=== PATIENT | female | born 1945 | race Caucasian/White ===

== ENCOUNTER 2019-01-20 19:52 | Observation (INO) ==
[2019-01-20] MEDS ORDERED: SODIUM CHLORIDE 0.9% 1,000 ML IV STA (23:11)
[2019-01-20 23:34] LABS: Basophils # 0.1 10*3/uL (0.0-0.2); Basophils % 1.5 % (0.0-0.8); Eosinophils # 0.4 10*3/uL (0.0-0.87); Eosinophils % 3.9 % (0.00-10.9); Hematocrit 37.5 VOL% (35.7-47.0); Hemoglobin 12.5 GM/DL (12.0-16.0); Immature Granulocytes % 1.1 %; Lymphocytes # 1.2 10*3/uL (1.4-4.0); Lymphocytes % 13.9 % (21.3-54.2); Mean Corpuscular HGB Conc 33.3 GM/DL (32-36); Mean Corpuscular Hemoglobin 35 PG (27-34); Mean Corpuscular Volume 104.7 FL (87-102); Mean Platelet Volume 9.9 FL (9.6-12.0); Monocytes % 11.5 % (1.7-12.7); Neutrophils # 6.1 10*3/uL (1.4-7.4); Neutrophils % 68.1 % (38.7-73.9); Platelet Count 185 T/CUMM (130-400); Red Blood Count 3.58 MC/CUMM (3.8-5.5); Red Cell Distribution Width 14.6 % (9.3-17.3); White Blood Count 8.9 T/CUMM (4-12)
[2019-01-20 23:49] LABS: INR 1.1; PT Patient Result 11.5 SECS
[2019-01-20 23:54] LABS: Apearance,Urine CLEAR (Clear); Bilirubin,Urine Negative (Negative); Blood, Urine Negative (Negative); Glucose,Urine (UA) Negative (Negative); Hyaline Casts,Urine 3 /LPF (0-3); Ketones,Urine 5 mg/dL (Negative); Nitrite,Urine Negative (Negative); Protein,Urine Negative; RBC,Urine 2 /HPF (0-4); Urine Color Yellow (Yellow); Urine Specific Gravity 1.014 (1.001-1.035); WBC,Urine 1 /HPF (0-6)
[2019-01-21 00:02] LABS: Barbiturates Screen,Urine Negative (Negative); Benzodiazepines Screen,Urine Negative (Negative); Cannabinoid Screen,Urine Negative (Negative); Opiate Screen,Urine Negative (Negative); Phencyclidine Screen,Urine Negative (Negative)
[2019-01-21 00:21] LABS: Alanine Aminotransferase 14 U/L (13-56); Alkaline Phosphatase 103 U/L (45-117); Aspartate Amino Transferase 41 U/L (0-37); Blood Urea Nitrogen 36 MG/DL (7-18); Calcium 9.6 MG/DL (8.5-10.1); Glucose 109 MG/DL (74-106); Osmolality,Calculated 276.2 MOS/KG (273-304); Potassium 5.7 MMOL/L (3.5-5.1); Sodium 134 MMOL/L (136-145); Total Protein 9.2 G/DL (6.4-8.3); Troponin I < 0.015 NG/ML (0.00-0.045)
[2019-01-21] MEDS ORDERED: BISACODYL 5 MG TABLET PO PRN (01:12)
[2019-01-21] MEDS ORDERED: diphenhydrAMINE CAP 25 MG CAPSULE PO PRN (01:12)
[2019-01-21] MEDS ORDERED: ONDANSETRON 4 MG/2 ML VIAL IV PRN (01:12)
[2019-01-21] MEDS ORDERED: guaiFENesin/DM ER 600-30 MG TABLET PO PRN (01:12)
[2019-01-21] MEDS ORDERED: ACETAMINOPHEN 325 MG TABLET PO PRN (01:12)
[2019-01-21] MEDS ORDERED: NICOTINE 21 MG/24 HR PATCH TRANSDERM PRN (01:12)
[2019-01-21] MEDS ORDERED: ZALEPLON 5 MG CAPSULE PO PRN (01:12)
[2019-01-21] MEDS: SODIUM CHLORIDE 0.9% 1,000 ML IV SCH ×3 (04:30→21:39)
[2019-01-21 05:50] LABS: Folate 13.3 NG/ML (5.4-24.0)
[2019-01-21] MEDS ORDERED: SODIUM POLYSTYRENE SULFATE 15 GM/60 ML BOTTLE PO STA (06:28)
[2019-01-21 07:37] LABS: Calcium 8.8 MG/DL (8.5-10.1); Osmolality,Calculated 287.3 MOS/KG (273-304); Potassium 4.6 MMOL/L (3.5-5.1)
[2019-01-21 07:41] LABS: Free T4 (Free Thyroxine) 1.37 NG/DL (0.76-1.46)
[2019-01-21] MEDS ORDERED: ONDANSETRON ODT 4 MG TABLET PO PRN (09:06)
[2019-01-21] MEDS: PANTOPRAZOLE 40 MG TABLET PO SCH ×2 (10:35→10:55)
[2019-01-21] MEDS: LACTULOSE 20 GM/30 ML UDCUP PO SCH ×2 (15:43→20:58)
[2019-01-21] MEDS: SPIRONOLACTONE 50 MG TABLET PO SCH (20:58)
[2019-01-21] MEDS: IRON (CARBONYL)/VIT C/B12/FA TABLET PO SCH (20:58)
[2019-01-21] MEDS: CARBIDOPA/LEVODOPA 25-100 MG TABLET PO SCH (20:58)
[2019-01-21] MEDS ORDERED: FOLIC ACID 1 MG TABLET PO SCH (21:00)
[2019-01-22] MEDS: SODIUM CHLORIDE 0.9% 1,000 ML IV SCH ×2 (05:59→13:26)
[2019-01-22] MEDS ORDERED: PANTOPRAZOLE 40 MG TABLET PO SCH (09:00)
[2019-01-22] MEDS ORDERED: azaTHIOprine 50 MG TABLET PO SCH (09:00)
[2019-01-22] MEDS ORDERED: FLUTICASONE INH SCH (09:00)
[2019-01-22] MEDS ORDERED: VILANTEROL INH SCH (09:00)
[2019-01-22] MEDS ORDERED: MONTELUKAST 10 MG TABLET PO SCH (09:00)
[2019-01-22] MEDS ORDERED: ASPIRIN EC 81 MG TABLET PO SCH (09:00)
[2019-01-22] MEDS: LACTULOSE 20 GM/30 ML UDCUP PO SCH (09:26)
[2019-01-22] MEDS: SPIRONOLACTONE 50 MG TABLET PO SCH (09:27)
[2019-01-22] MEDS: IRON (CARBONYL)/VIT C/B12/FA TABLET PO SCH (09:27)
[2019-01-22] MEDS: CARBIDOPA/LEVODOPA 25-100 MG TABLET PO SCH (09:30)
[2019-01-22 11:59] VITALS: BP 116/63
[2019-01-28] MEDS ORDERED: ERGOCALCIFEROL 50,000 UNIT CAPSULE PO SCH (09:00)
== END 2019-01-22 14:34 ==
LOC: N.EDINP 19:52 → N.ED 19:52 → N.2E 01-21 02:29
PROVIDERS: ADMIT Internal Medicine; ATTEND Internal Medicine

== ENCOUNTER 2019-03-31 09:23 | Inpatient (IN) ==
[2019-03-31] MEDS ORDERED: SODIUM CHLORIDE 0.9% 1,000 ML IV STA (12:12)
[2019-03-31 12:21] LABS: Apearance,Urine CLOUDY (Clear); Bilirubin,Urine Negative (Negative); Blood, Urine Small mg/dL (Negative); Glucose,Urine (UA) Negative (Negative); Ketones,Urine 5 mg/dL (Negative); Mucus,Urine Occasional /LPF (Occasional); Nitrite,Urine Negative (Negative); Protein,Urine 100 MG/DL; RBC,Urine 6 /HPF (0-4); Urine Specific Gravity 1.017 (1.001-1.035); Urine Urobilinogen < 2.0 EU/DL (0.2-1.0); WBC,Urine 1216 /HPF (0-6)
[2019-03-31 12:22] LABS: Urine Color Yellow (Yellow)
[2019-03-31 12:23] LABS: Barbiturates Screen,Urine Negative (Negative); Benzodiazepines Screen,Urine Negative (Negative); Cannabinoid Screen,Urine Negative (Negative); Opiate Screen,Urine Negative (Negative); Phencyclidine Screen,Urine Negative (Negative)
[2019-03-31 12:30] LABS: Basophils # 0.1 10*3/uL (0.0-0.2); Basophils % 0.7 % (0.0-0.8); Eosinophils # 0.2 10*3/uL (0.0-0.87); Eosinophils % 1.3 % (0.00-10.9); Hematocrit 38.2 VOL% (35.7-47.0); Hemoglobin 12.7 GM/DL (12.0-16.0); Immature Granulocytes % 1.5 %; Lymphocytes # 0.7 10*3/uL (1.4-4.0); Lymphocytes % 5.3 % (21.3-54.2); Mean Corpuscular HGB Conc 33.2 GM/DL (32-36); Mean Corpuscular Volume 107.6 FL (87-102); NRBC # 0.02 10*3/uL; Neutrophils % 87.2 % (38.7-73.9); Platelet Count 133 T/CUMM (130-400); Red Blood Count 3.55 MC/CUMM (3.8-5.5); Red Cell Distribution Width 15.3 % (9.3-17.3); White Blood Count 13.2 T/CUMM (4-12)
[2019-03-31 12:38] LABS: INR 1.1; PT Patient Result 11.8 SECS; Partial Thromboplastin Time 25.7 SECS (0-40)
[2019-03-31 13:03] LABS: Alanine Aminotransferase < 9 U/L (13-56); Albumin 3.3 G/DL (3.4-5.0); Alkaline Phosphatase 95 U/L (45-117); Aspartate Amino Transferase 34 U/L (0-37); Blood Urea Nitrogen 43 MG/DL (7-18); Calcium 9.8 MG/DL (8.5-10.1); Glucose 119 MG/DL (74-106); Osmolality,Calculated 281.1 MOS/KG (273-304); Total Protein 8.1 G/DL (6.4-8.3)
[2019-03-31] MEDS ORDERED: cefTRIAXone 1,000 MG in SODIUM CHLORIDE 0.9% 100 ML IV STA (14:26)
[2019-03-31] MEDS ORDERED: GLUCAGON 1 MG VIAL IM PRN (14:41)
[2019-03-31] MEDS ORDERED: ONDANSETRON 4 MG/2 ML VIAL IV PRN (14:41)
[2019-03-31] MEDS ORDERED: ACETAMINOPHEN 325 MG TABLET PO PRN (14:41)
[2019-03-31] MEDS ORDERED: DEXTROSE 50% 25 GM/50 ML VIAL IV PRN (14:41)
[2019-03-31] MEDS ORDERED: cefTRIAXone 1,000 MG VIAL ONE (15:39)
[2019-03-31] MEDS: LACTULOSE 20 GM/30 ML UDCUP PO SCH ×2 (15:45→21:23)
[2019-03-31] MEDS: CARBIDOPA/LEVODOPA 25-100 MG TABLET PO SCH ×2 (15:48→21:23)
[2019-03-31] MEDS: SODIUM CHLORIDE 0.9% 1,000 ML IV SCH (15:49)
[2019-03-31] MEDS: cefTRIAXone 1,000 MG in SYRINGE 1 EACH IV SCH (15:49)
[2019-03-31] MEDS: INSULIN LISPRO 100 UNIT/ML SUBCUT SCH ×2 (18:30→22:26)
[2019-03-31] MEDS: MIRTAZAPINE 15 MG TABLET PO SCH (21:23)
[2019-03-31] MEDS: FOLIC ACID 1 MG TABLET PO SCH (21:23)
[2019-03-31] MEDS: IRON (CARBONYL)/VIT C/B12/FA TABLET PO SCH (21:23)
[2019-04-01] MEDS: SODIUM CHLORIDE 0.9% 1,000 ML IV SCH ×3 (03:18→21:36)
[2019-04-01 04:37] LABS: Basophils % 0.3 % (0.0-0.8); Eosinophils # 0.1 10*3/uL (0.0-0.87); Eosinophils % 0.7 % (0.00-10.9); Hematocrit 27.3 VOL% (35.7-47.0); Immature Granulocytes % 1.1 %; Lymphocytes # 0.5 10*3/uL (1.4-4.0); Lymphocytes % 5.4 % (21.3-54.2); Mean Corpuscular Volume 109.2 FL (87-102); Mean Platelet Volume 10.9 FL (9.6-12.0); Monocytes % 16.7 % (1.7-12.7); Neutrophils % 75.8 % (38.7-73.9); Platelet Count 66 T/CUMM (130-400); Red Cell Distribution Width 15.4 % (9.3-17.3); White Blood Count 9.5 T/CUMM (4-12)
[2019-04-01 04:53] LABS: Albumin 2.5 G/DL (3.4-5.0); Bilirubin,Total 1.9 MG/DL (0.2-1.0); Calcium 8.3 MG/DL (8.5-10.1); Osmolality,Calculated 281.8 MOS/KG (273-304); Total Protein 6.1 G/DL (6.4-8.3)
[2019-04-01 05:35] LABS: Band Neutrophils 11 % (0-10); Lymphocytes 3 % (20-55); Segmented Neutrophils 68 % (50-85); Total Cells Counted 100
[2019-04-01 05:36] LABS: Anisocytosis 1+
[2019-04-01 05:38] LABS: Platelet Estimate Decreased
[2019-04-01] MEDS: INSULIN LISPRO 100 UNIT/ML SUBCUT SCH ×4 (08:12→21:29)
[2019-04-01] MEDS ORDERED: ERGOCALCIFEROL 50,000 UNIT CAPSULE PO SCH (09:00)
[2019-04-01] MEDS ORDERED: LACTULOSE 20 GM/30 ML UDCUP PO SCH (09:00)
[2019-04-01] MEDS: CARBIDOPA/LEVODOPA 25-100 MG TABLET PO SCH ×3 (09:30→21:35)
[2019-04-01] MEDS: PANTOPRAZOLE 40 MG TABLET PO SCH (09:30)
[2019-04-01] MEDS: IRON (CARBONYL)/VIT C/B12/FA TABLET PO SCH ×2 (09:30→21:35)
[2019-04-01] MEDS: LACTULOSE 20 GM/30 ML UDCUP PO SCH ×3 (09:30→21:29)
[2019-04-01] MEDS: ASPIRIN EC 81 MG TABLET PO SCH (09:30)
[2019-04-01] MEDS: azaTHIOprine 50 MG TABLET PO SCH (09:31)
[2019-04-01] MEDS: MONTELUKAST 10 MG TABLET PO SCH (09:34)
[2019-04-01] MEDS: BREO ELLIPTA INH SCH (12:51)
[2019-04-01] MEDS: cefTRIAXone 1,000 MG in SYRINGE 1 EACH IV SCH (15:07)
[2019-04-01] MEDS: MIRTAZAPINE 15 MG TABLET PO SCH (21:35)
[2019-04-01] MEDS: FOLIC ACID 1 MG TABLET PO SCH (21:35)
[2019-04-02 08:21] LABS: Basophils % 0.4 % (0.0-0.8); Eosinophils # 0.3 10*3/uL (0.0-0.87); Eosinophils % 4.6 % (0.00-10.9); Hematocrit 25.6 VOL% (35.7-47.0); Hemoglobin 8.4 GM/DL (12.0-16.0); Immature Granulocytes % 1.1 %; Immature Granulocytes Absolute 0.06 #; Lymphocytes # 0.4 10*3/uL (1.4-4.0); Lymphocytes % 7.9 % (21.3-54.2); Mean Corpuscular HGB Conc 32.8 GM/DL (32-36); Mean Corpuscular Volume 107.6 FL (87-102); Mean Platelet Volume 11.1 FL (9.6-12.0); Monocytes % 17.8 % (1.7-12.7); Neutrophils % 68.2 % (38.7-73.9); Red Blood Count 2.38 MC/CUMM (3.8-5.5); White Blood Count 5.4 T/CUMM (4-12)
[2019-04-02 08:25] LABS: Platelet Count 69 T/CUMM (130-400)
[2019-04-02 08:35] LABS: Albumin 2.2 G/DL (3.4-5.0); Bilirubin,Total 1.3 MG/DL (0.2-1.0); Calcium 7.6 MG/DL (8.5-10.1); Osmolality,Calculated 274.8 MOS/KG (273-304); Total Protein 5.5 G/DL (6.4-8.3)
[2019-04-02 08:43] LABS: Eosinophils 7 % (0-10); Hypochromasia 1+; Lymphocytes 5 % (20-55); Platelet Estimate Decreased; Segmented Neutrophils 75 % (50-85); Total Cells Counted 100
[2019-04-02] MEDS: INSULIN LISPRO 100 UNIT/ML SUBCUT SCH ×2 (08:45→12:40)
[2019-04-02] MEDS: SODIUM CHLORIDE 0.9% 1,000 ML IV SCH (08:48)
[2019-04-02] MEDS ORDERED: TUBERCULIN SKIN TEST 0.1 ML SYRINGE INTRADERM ONE (09:13)
[2019-04-02] MEDS: MONTELUKAST 10 MG TABLET PO SCH (09:26)
[2019-04-02] MEDS: ASPIRIN EC 81 MG TABLET PO SCH (09:26)
[2019-04-02] MEDS: IRON (CARBONYL)/VIT C/B12/FA TABLET PO SCH (09:26)
[2019-04-02] MEDS: azaTHIOprine 50 MG TABLET PO SCH (09:26)
[2019-04-02] MEDS: PANTOPRAZOLE 40 MG TABLET PO SCH (09:26)
[2019-04-02] MEDS: CARBIDOPA/LEVODOPA 25-100 MG TABLET PO SCH (09:26)
[2019-04-02] MEDS: LACTULOSE 20 GM/30 ML UDCUP PO SCH (09:27)
[2019-04-02] MEDS: BREO ELLIPTA INH SCH (09:32)
[2019-04-02 12:40] VITALS: BP 101/55
== END 2019-04-02 12:45 | disposition home or self-care (01) | DRG 683 ==
LOC: N.ED 09:23 → N.EDINP 14:41 → N.5E 19:38
PROVIDERS: ADMIT Internal Medicine; ATTEND Internal Medicine

== ENCOUNTER 2019-04-19 19:25 | Inpatient (IN) ==
[2019-04-19] MEDS ORDERED: SODIUM CHLORIDE 0.9% 1,000 ML IV STA (21:57)
[2019-04-19 22:09] LABS: Basophils % 0.3 % (0.0-0.8); Eosinophils # 0.1 10*3/uL (0.0-0.87); Eosinophils % 0.8 % (0.00-10.9); Hematocrit 33.2 VOL% (35.7-47.0); Hemoglobin 10.7 GM/DL (12.0-16.0); Immature Granulocytes % 1.2 %; Immature Granulocytes Absolute 0.14 #; Lymphocytes # 0.4 10*3/uL (1.4-4.0); Lymphocytes % 3.2 % (21.3-54.2); Mean Corpuscular HGB Conc 32.2 GM/DL (32-36); Mean Corpuscular Volume 109.6 FL (87-102); Monocytes % 11.6 % (1.7-12.7); NRBC # 0.03 10*3/uL; Neutrophils % 82.9 % (38.7-73.9); Platelet Count 117 T/CUMM (130-400); Red Blood Count 3.03 MC/CUMM (3.8-5.5); Red Cell Distribution Width 15.8 % (9.3-17.3); White Blood Count 11.5 T/CUMM (4-12)
[2019-04-19 22:16] LABS: INR 1.1; PT Patient Result 11.8 SECS
[2019-04-19 22:23] LABS: Apearance,Urine CLOUDY (Clear); Bilirubin,Urine Negative (Negative); Blood, Urine Negative (Negative); Glucose,Urine (UA) Negative (Negative); Ketones,Urine 5 mg/dL (Negative); Nitrite,Urine Negative (Negative); Protein,Urine 100 MG/DL; RBC,Urine 4 /HPF (0-4); Urine Color Amber (Yellow); Urine Specific Gravity 1.014 (1.001-1.035); WBC,Urine 418 /HPF (0-6)
[2019-04-19 22:30] LABS: Anisocytosis Slight; Band Neutrophils 5 % (0-10); Hypochromasia Slight; Lymphocytes 4 % (20-55); Polychromasia Few; Segmented Neutrophils 84 % (50-85); Total Cells Counted 100
[2019-04-19 22:31] LABS: Platelet Estimate Adequate
[2019-04-19 22:33] LABS: Albumin 3.3 G/DL (3.4-5.0); Bilirubin,Total 2.8 MG/DL (0.2-1.0); Calcium 8.9 MG/DL (8.5-10.1); Osmolality,Calculated 276.1 MOS/KG (273-304); Total Protein 7.4 G/DL (6.4-8.3)
[2019-04-19] MEDS ORDERED: cefTRIAXone 250 MG VIAL IV STA (22:53)
[2019-04-19] MEDS ORDERED: LACTULOSE 20 GM/30 ML UDCUP PO STA (22:54)
[2019-04-19] MEDS ORDERED: cefTRIAXone 1,000 MG in SYRINGE 1 EACH IV STA (23:14)
[2019-04-20] MEDS ORDERED: ONDANSETRON 4 MG/2 ML VIAL IV PRN (00:45)
[2019-04-20] MEDS ORDERED: LACTULOSE 20 GM/30 ML UDCUP PO PRN (00:45)
[2019-04-20] MEDS ORDERED: DEXTROSE 50% 25 GM/50 ML VIAL IV PRN (01:37)
[2019-04-20] MEDS ORDERED: GLUCAGON 1 MG VIAL IM PRN (01:37)
[2019-04-20 05:59] LABS: Basophils % 0.3 % (0.0-0.8); Eosinophils % 0.1 % (0.00-10.9); Hematocrit 28.1 VOL% (35.7-47.0); Hemoglobin 9.4 GM/DL (12.0-16.0); Immature Granulocytes % 0.8 %; Immature Granulocytes Absolute 0.08 #; Lymphocytes # 0.4 10*3/uL (1.4-4.0); Lymphocytes % 3.9 % (21.3-54.2); Mean Corpuscular HGB Conc 33.5 GM/DL (32-36); Mean Corpuscular Volume 108.1 FL (87-102); Mean Platelet Volume 10.2 FL (9.6-12.0); Monocytes % 15.1 % (1.7-12.7); Neutrophils % 79.8 % (38.7-73.9); Red Cell Distribution Width 15.7 % (9.3-17.3); White Blood Count 9.7 T/CUMM (4-12)
[2019-04-20 06:00] LABS: Platelet Count 81 T/CUMM (130-400)
[2019-04-20 06:16] LABS: Calcium 8.3 MG/DL (8.5-10.1); Osmolality,Calculated 281.8 MOS/KG (273-304)
[2019-04-20 06:35] LABS: Albumin 2.7 G/DL (3.4-5.0); Bilirubin,Direct 0.83 MG/DL (0.0-0.20); Bilirubin,Indirect 1.2 MG/DL (0.0-1.0); Total Protein 6.5 G/DL (6.4-8.3)
[2019-04-20 06:44] LABS: Band Neutrophils 1 % (0-10); Lymphocytes 1 % (20-55); Segmented Neutrophils 90 % (50-85); Total Cells Counted 100
[2019-04-20] MEDS: INSULIN LISPRO 100 UNIT/ML SUBCUT SCH ×3 (07:13→17:11)
[2019-04-20] MEDS ORDERED: ERGOCALCIFEROL 50,000 UNIT CAPSULE PO SCH (09:00)
[2019-04-20] MEDS ORDERED: FLUTICASONE FUROATE VILANTEROL INH SCH (09:00)
[2019-04-20] MEDS: ASPIRIN EC 81 MG TABLET PO SCH (10:21)
[2019-04-20] MEDS: MONTELUKAST 10 MG TABLET PO SCH (10:21)
[2019-04-20] MEDS: GABAPENTIN 300 MG CAPSULE PO SCH ×2 (10:22→21:10)
[2019-04-20] MEDS: azaTHIOprine 50 MG TABLET PO SCH (10:22)
[2019-04-20] MEDS: CARBIDOPA/LEVODOPA 25-100 MG TABLET PO SCH ×3 (10:22→21:10)
[2019-04-20] MEDS: IRON (CARBONYL)/VIT C/B12/FA TABLET PO SCH ×2 (10:22→21:11)
[2019-04-20] MEDS: SPIRONOLACTONE 50 MG TABLET PO SCH (10:22)
[2019-04-20] MEDS: LACTULOSE 20 GM/30 ML UDCUP PO SCH ×3 (10:23→21:10)
[2019-04-20] MEDS: PANTOPRAZOLE 40 MG TABLET PO SCH (10:23)
[2019-04-20] MEDS: DIGOXIN 0.125 MG TABLET PO SCH (13:42)
[2019-04-20] MEDS: cefTRIAXone 1,000 MG in SYRINGE 1 EACH IV SCH (21:09)
[2019-04-20] MEDS: MIRTAZAPINE 15 MG TABLET PO SCH (21:10)
[2019-04-20] MEDS: FOLIC ACID 1 MG TABLET PO SCH (21:10)
[2019-04-21] MEDS: INSULIN LISPRO 100 UNIT/ML SUBCUT SCH ×5 (00:40→23:40)
[2019-04-21 05:14] LABS: Basophils % 0.3 % (0.0-0.8); Eosinophils # 0.4 10*3/uL (0.0-0.87); Eosinophils % 5.6 % (0.00-10.9); Hematocrit 25.5 VOL% (35.7-47.0); Hemoglobin 8.6 GM/DL (12.0-16.0); Immature Granulocytes Absolute 0.06 #; Lymphocytes # 0.6 10*3/uL (1.4-4.0); Lymphocytes % 9.9 % (21.3-54.2); Mean Corpuscular HGB Conc 33.7 GM/DL (32-36); Mean Corpuscular Volume 107.6 FL (87-102); Mean Platelet Volume 10.4 FL (9.6-12.0); Monocytes % 16.7 % (1.7-12.7); Neutrophils % 66.5 % (38.7-73.9); Red Blood Count 2.37 MC/CUMM (3.8-5.5); Red Cell Distribution Width 15.7 % (9.3-17.3)
[2019-04-21 05:15] LABS: Calcium 8.7 MG/DL (8.5-10.1); Osmolality,Calculated 282.5 MOS/KG (273-304)
[2019-04-21 05:18] LABS: Platelet Count 66 T/CUMM (130-400); White Blood Count 6.3 T/CUMM (4-12)
[2019-04-21 06:08] LABS: Band Neutrophils 3 % (0-10); Eosinophils 4 % (0-10); Lymphocytes 10 % (20-55); Metamyelocytes 1 %; Platelet Estimate Decreased; Segmented Neutrophils 64 % (50-85); Total Cells Counted 100
[2019-04-21 06:09] LABS: Anisocytosis 2+; Macrocytosis 2+; Ovalocytes 1+
[2019-04-21] MEDS: ASPIRIN EC 81 MG TABLET PO SCH (08:57)
[2019-04-21] MEDS: IRON (CARBONYL)/VIT C/B12/FA TABLET PO SCH ×2 (08:57→20:48)
[2019-04-21] MEDS: SPIRONOLACTONE 50 MG TABLET PO SCH (08:57)
[2019-04-21] MEDS: LACTULOSE 20 GM/30 ML UDCUP PO SCH ×3 (08:57→20:49)
[2019-04-21] MEDS: PANTOPRAZOLE 40 MG TABLET PO SCH (08:57)
[2019-04-21] MEDS: azaTHIOprine 50 MG TABLET PO SCH (08:58)
[2019-04-21] MEDS: GABAPENTIN 300 MG CAPSULE PO SCH ×2 (08:58→20:48)
[2019-04-21] MEDS: CARBIDOPA/LEVODOPA 25-100 MG TABLET PO SCH ×3 (08:58→20:48)
[2019-04-21] MEDS: MONTELUKAST 10 MG TABLET PO SCH (09:11)
[2019-04-21] MEDS: DIGOXIN 0.125 MG TABLET PO SCH (13:14)
[2019-04-21] MEDS: MIRTAZAPINE 15 MG TABLET PO SCH (20:48)
[2019-04-21] MEDS: FOLIC ACID 1 MG TABLET PO SCH (20:48)
[2019-04-21] MEDS: cefTRIAXone 1,000 MG in SYRINGE 1 EACH IV SCH (20:48)
[2019-04-22 04:49] LABS: Basophils % 0.4 % (0.0-0.8); Eosinophils # 0.3 10*3/uL (0.0-0.87); Eosinophils % 5.9 % (0.00-10.9); Hematocrit 26.9 VOL% (35.7-47.0); Hemoglobin 8.9 GM/DL (12.0-16.0); Immature Granulocytes % 1.5 %; Immature Granulocytes Absolute 0.08 #; Lymphocytes # 0.7 10*3/uL (1.4-4.0); Lymphocytes % 12.9 % (21.3-54.2); Mean Corpuscular HGB Conc 33.1 GM/DL (32-36); Monocytes % 13.9 % (1.7-12.7); Neutrophils % 65.4 % (38.7-73.9); Platelet Count 80 T/CUMM (130-400); Red Blood Count 2.49 MC/CUMM (3.8-5.5); Red Cell Distribution Width 15.6 % (9.3-17.3); White Blood Count 5.3 T/CUMM (4-12)
[2019-04-22 05:07] LABS: Hypochromasia 1+; Platelet Estimate Decreased
[2019-04-22 05:08] LABS: Macrocytosis 1+
[2019-04-22 05:15] LABS: Calcium 8.8 MG/DL (8.5-10.1); Osmolality,Calculated 283.3 MOS/KG (273-304)
[2019-04-22] MEDS: INSULIN LISPRO 100 UNIT/ML SUBCUT SCH ×2 (05:57→11:31)
[2019-04-22] MEDS: LACTULOSE 20 GM/30 ML UDCUP PO SCH (08:25)
[2019-04-22] MEDS: GABAPENTIN 300 MG CAPSULE PO SCH (08:27)
[2019-04-22] MEDS: ASPIRIN EC 81 MG TABLET PO SCH (08:27)
[2019-04-22] MEDS: SPIRONOLACTONE 50 MG TABLET PO SCH (08:27)
[2019-04-22] MEDS: PANTOPRAZOLE 40 MG TABLET PO SCH (08:27)
[2019-04-22] MEDS: MONTELUKAST 10 MG TABLET PO SCH (08:27)
[2019-04-22] MEDS: IRON (CARBONYL)/VIT C/B12/FA TABLET PO SCH (08:28)
[2019-04-22] MEDS: CARBIDOPA/LEVODOPA 25-100 MG TABLET PO SCH (08:29)
[2019-04-22] MEDS: azaTHIOprine 50 MG TABLET PO SCH (08:36)
[2019-04-22 11:48] VITALS: BP 117/54
== END 2019-04-22 12:40 | disposition home health service (06) | DRG 689 ==
LOC: N.ED 19:25 → N.EDINP 04-20 00:45 → N.2E 04-20 01:13
PROVIDERS: ADMIT Internal Medicine; ATTEND Internal Medicine

== ENCOUNTER 2019-08-25 05:32 | Inpatient (IN) ==
[2019-08-25] MEDS ORDERED: SODIUM CHLORIDE 0.9% 1,000 ML IV STA (06:06)
[2019-08-25 06:36] LABS: ABG Base Excess 11.8 MMOL/L (-2.5-2.5); ABG HCO3 35.6 MMOL/L (20-26); ABG PCO2 42.4 MM HG (35-48); ABG PH 7.534 (7.35-7.45); ABG TCO2 33.8 MMOL/L (23-27); Allen Test Positive
[2019-08-25 06:52] LABS: Basophils % 0.5 % (0.0-0.8); Eosinophils # 0.6 10*3/uL (0.0-0.87); Eosinophils % 10.5 % (0.00-10.9); Hematocrit 20.5 VOL% (35.7-47.0); Hemoglobin 6.6 GM/DL (12.0-16.0); Immature Granulocytes % 0.9 %; Immature Granulocytes Absolute 0.05 #; Lymphocytes # 0.7 10*3/uL (1.4-4.0); Mean Corpuscular HGB Conc 32.2 GM/DL (32-36); Mean Corpuscular Volume 110.8 FL (87-102); Mean Platelet Volume 10.2 FL (9.6-12.0); Monocytes % 11.2 % (1.7-12.7); Neutrophils % 64.9 % (38.7-73.9); Platelet Count 138 T/CUMM (130-400); Red Blood Count 1.85 MC/CUMM (3.8-5.5); Red Cell Distribution Width 15.2 % (9.3-17.3); White Blood Count 5.7 T/CUMM (4-12)
[2019-08-25 07:00] LABS: INR 1.2; PT Patient Result 12.7 SECS (9.6-12.2); Partial Thromboplastin Time 25.4 SECS (20.8-36.0)
[2019-08-25 07:11] LABS: Albumin 2.6 G/DL (3.4-5.0); Calcium 8.6 MG/DL (8.5-10.1); Hypochromasia 2+; Osmolality,Calculated 283.7 MOS/KG (273-304); Ovalocytes Slight; Platelet Estimate Normal; Total Protein 6.2 G/DL (6.4-8.3)
[2019-08-25 07:12] LABS: Macrocytosis Slight
[2019-08-25 07:29] LABS: Apearance,Urine CLEAR (Clear); Bilirubin,Urine Negative (Negative); Blood, Urine Negative (Negative); Glucose,Urine (UA) Negative (Negative); Hyaline Casts,Urine 9 /LPF (0-3); Ketones,Urine Negative (Negative); Mucus,Urine Occasional /LPF (Occasional); Nitrite,Urine Negative (Negative); Protein,Urine Negative; Urine Color Straw (Yellow); Urine Specific Gravity 1.005 (1.001-1.035); Urine Urobilinogen < 2.0 EU/DL (0.2-1.0)
[2019-08-25 07:30] LABS: Barbiturates Screen,Urine Negative (Negative); Benzodiazepines Screen,Urine Negative (Negative); Cannabinoid Screen,Urine Negative (Negative); Opiate Screen,Urine Negative (Negative); Phencyclidine Screen,Urine Negative (Negative)
[2019-08-25 09:41] LABS: ABG Base Excess 11.2 MMOL/L (-2.5-2.5); ABG Oxygen Saturation 99.1 % (95-100); ABG PCO2 44.8 MM HG (35-48); ABG PH 7.507 (7.35-7.45); ABG PO2 91.3 MM HG (80-95); ABG TCO2 33.6 MMOL/L (23-27); Allen Test Positive
[2019-08-25] MEDS ORDERED: ONDANSETRON 4 MG/2 ML VIAL IV PRN (09:55)
[2019-08-25] MEDS ORDERED: SODIUM CHLORIDE 0.9% 1,000 ML IV SCH (10:00)
[2019-08-25] MEDS ORDERED: ENOXAPARIN 30 MG/0.3 ML SYRINGE SUBCUT SCH (10:00)
[2019-08-25] MEDS: LACTULOSE 20 GM/30 ML UDCUP PO SCH ×4 (12:20→21:08)
[2019-08-25] MEDS: SODIUM CHLOR 0.9% KCL 40 MEQ 40 MEQ/1,000 ML BAG IV SCH ×2 (12:20→21:09)
[2019-08-25] MEDS: MIRTAZAPINE 15 MG TABLET PO SCH (21:08)
[2019-08-25] MEDS: MECLIZINE 25 MG TABLET PO SCH (21:08)
[2019-08-25] MEDS: CARBIDOPA/LEVODOPA 25-100 MG TABLET PO SCH (21:08)
[2019-08-25] MEDS: FOLIC ACID 1 MG TABLET PO SCH (21:08)
[2019-08-25] MEDS: GABAPENTIN 300 MG CAPSULE PO SCH (21:08)
[2019-08-26] MEDS: LACTULOSE 20 GM/30 ML UDCUP PO SCH ×5 (02:37→20:04)
[2019-08-26 05:16] LABS: Basophils % 0.4 % (0.0-0.8); Eosinophils # 0.7 10*3/uL (0.0-0.87); Eosinophils % 15.2 % (0.00-10.9); Hematocrit 19.4 VOL% (35.7-47.0); Immature Granulocytes % 0.9 %; Immature Granulocytes Absolute 0.04 #; Lymphocytes # 0.7 10*3/uL (1.4-4.0); Lymphocytes % 15.2 % (21.3-54.2); Mean Corpuscular HGB Conc 30.9 GM/DL (32-36); Mean Corpuscular Volume 116.2 FL (87-102); Mean Platelet Volume 10.4 FL (9.6-12.0); Monocytes % 13.6 % (1.7-12.7); Neutrophils % 54.7 % (38.7-73.9); Platelet Count 129 T/CUMM (130-400); Red Blood Count 1.67 MC/CUMM (3.8-5.5); Red Cell Distribution Width 15.8 % (9.3-17.3); White Blood Count 4.6 T/CUMM (4-12)
[2019-08-26 05:44] LABS: Band Neutrophils 3 % (0-10); Eosinophils 17 % (0-10); Lymphocytes 13 % (20-55); Platelet Estimate Decreased; Segmented Neutrophils 61 % (50-85); Total Cells Counted 100
[2019-08-26] MEDS ORDERED: SODIUM CHLORIDE 0.9% 1,000 ML IV PRN (05:44)
[2019-08-26 05:45] LABS: Anisocytosis Slight; Microcytosis Slight; Polychromasia Few
[2019-08-26 05:47] LABS: Albumin 2.4 G/DL (3.4-5.0); Bilirubin,Total 1.1 MG/DL (0.2-1.0); Calcium 8.3 MG/DL (8.5-10.1); Osmolality,Calculated 290.8 MOS/KG (273-304); Risk Ratio 4.78; Thyroid Stimulating Hormone 6.31 uIU/ml (0.358-3.74); Total Protein 5.5 G/DL (6.4-8.3); VLDL CHOLESTEROL 33.8 MG/DL
[2019-08-26] MEDS: SODIUM CHLOR 0.9% KCL 40 MEQ 40 MEQ/1,000 ML BAG IV SCH ×2 (05:58→18:25)
[2019-08-26] MEDS: azaTHIOprine 50 MG TABLET PO SCH (09:43)
[2019-08-26] MEDS: CARBIDOPA/LEVODOPA 25-100 MG TABLET PO SCH ×3 (09:43→20:04)
[2019-08-26] MEDS: GABAPENTIN 300 MG CAPSULE PO SCH ×2 (09:43→20:04)
[2019-08-26] MEDS: ASPIRIN EC 81 MG TABLET PO SCH (09:43)
[2019-08-26] MEDS: PANTOPRAZOLE 40 MG TABLET PO SCH (09:43)
[2019-08-26] MEDS: MECLIZINE 25 MG TABLET PO SCH ×3 (09:44→20:04)
[2019-08-26] MEDS: MONTELUKAST 10 MG TABLET PO SCH (09:44)
[2019-08-26] MEDS ORDERED: LACTULOSE 20 GM/30 ML UDCUP PO SCH (15:00)
[2019-08-26 20:00] LABS: Hemoglobin 8.2 GM/DL (12.0-16.0)
[2019-08-26] MEDS: FOLIC ACID 1 MG TABLET PO SCH (20:04)
[2019-08-26] MEDS: MIRTAZAPINE 15 MG TABLET PO SCH (20:04)
[2019-08-27] MEDS: SODIUM CHLOR 0.9% KCL 40 MEQ 40 MEQ/1,000 ML BAG IV SCH ×2 (05:45→18:09)
[2019-08-27 05:48] LABS: Basophils % 0.7 % (0.0-0.8); Eosinophils # 0.6 10*3/uL (0.0-0.87); Hematocrit 25.8 VOL% (35.7-47.0); Hemoglobin 8.1 GM/DL (12.0-16.0); Immature Granulocytes % 0.7 %; Immature Granulocytes Absolute 0.03 #; Lymphocytes # 0.5 10*3/uL (1.4-4.0); Lymphocytes % 11.6 % (21.3-54.2); Mean Corpuscular HGB Conc 31.4 GM/DL (32-36); Mean Platelet Volume 10.1 FL (9.6-12.0); Monocytes % 12.2 % (1.7-12.7); Neutrophils % 60.8 % (38.7-73.9); Platelet Count 108 T/CUMM (130-400); Red Blood Count 2.48 MC/CUMM (3.8-5.5); Red Cell Distribution Width 24.6 % (9.3-17.3); White Blood Count 4.5 T/CUMM (4-12)
[2019-08-27 06:10] LABS: Albumin 2.4 G/DL (3.4-5.0); Bilirubin,Total 2.2 MG/DL (0.2-1.0); Calcium 8.2 MG/DL (8.5-10.1); Osmolality,Calculated 282.4 MOS/KG (273-304); Total Protein 5.8 G/DL (6.4-8.3)
[2019-08-27 06:15] LABS: Band Neutrophils 1 % (0-10); Eosinophils 14 % (0-10); Lymphocytes 10 % (20-55); Myelocytes 1 %; Segmented Neutrophils 62 % (50-85); Total Cells Counted 100
[2019-08-27 06:16] LABS: Hypochromasia 1+; Microcytosis 1+; Target Cells Slight
[2019-08-27 06:17] LABS: Platelet Estimate Adequate
[2019-08-27] MEDS: LACTULOSE 20 GM/30 ML UDCUP PO SCH ×4 (09:15→21:07)
[2019-08-27] MEDS: MONTELUKAST 10 MG TABLET PO SCH (09:17)
[2019-08-27] MEDS: MECLIZINE 25 MG TABLET PO SCH ×3 (09:17→21:07)
[2019-08-27] MEDS: ASPIRIN EC 81 MG TABLET PO SCH (09:17)
[2019-08-27] MEDS: CARBIDOPA/LEVODOPA 25-100 MG TABLET PO SCH ×3 (09:17→21:07)
[2019-08-27] MEDS: PANTOPRAZOLE 40 MG TABLET PO SCH (09:18)
[2019-08-27] MEDS: GABAPENTIN 300 MG CAPSULE PO SCH ×2 (09:18→21:07)
[2019-08-27] MEDS: azaTHIOprine 50 MG TABLET PO SCH (09:19)
[2019-08-27 10:35] LABS: % Iron Saturation 20.3 % (18-50); Ferritin 44.5 ng/ml (8-252)
[2019-08-27 12:53] LABS: Folate > 24.0 NG/ML (5.4-24.0); Vitamin B12 623 PG/ML (211-911)
[2019-08-27] MEDS: MIRTAZAPINE 15 MG TABLET PO SCH (21:07)
[2019-08-27] MEDS: FOLIC ACID 1 MG TABLET PO SCH (21:07)
[2019-08-28] MEDS: SODIUM CHLOR 0.9% KCL 40 MEQ 40 MEQ/1,000 ML BAG IV SCH ×2 (04:14→04:51)
[2019-08-28 05:15] LABS: Basophils % 0.7 % (0.0-0.8); Eosinophils # 0.7 10*3/uL (0.0-0.87); Eosinophils % 16.5 % (0.00-10.9); Hematocrit 24.5 VOL% (35.7-47.0); Hemoglobin 7.6 GM/DL (12.0-16.0); Immature Granulocytes % 0.7 %; Immature Granulocytes Absolute 0.03 #; Lymphocytes # 0.6 10*3/uL (1.4-4.0); Lymphocytes % 14.2 % (21.3-54.2); Mean Corpuscular Volume 106.5 FL (87-102); Mean Platelet Volume 10.3 FL (9.6-12.0); Monocytes % 11.4 % (1.7-12.7); Neutrophils % 56.5 % (38.7-73.9); Platelet Count 103 T/CUMM (130-400); Red Cell Distribution Width 23.6 % (9.3-17.3); White Blood Count 4.3 T/CUMM (4-12)
[2019-08-28 05:46] LABS: Calcium 8.2 MG/DL (8.5-10.1); Osmolality,Calculated 289.6 MOS/KG (273-304)
[2019-08-28 06:43] LABS: Eosinophils 13 % (0-10); Hypochromasia 1+; Lymphocytes 13 % (20-55); Segmented Neutrophils 63 % (50-85); Total Cells Counted 100
[2019-08-28 06:44] LABS: Anisocytosis 1+; Microcytosis 1+; Ovalocytes Slight; Platelet Estimate Decreased
[2019-08-28] MEDS: CARBIDOPA/LEVODOPA 25-100 MG TABLET PO SCH ×3 (09:41→20:31)
[2019-08-28] MEDS: azaTHIOprine 50 MG TABLET PO SCH (09:41)
[2019-08-28] MEDS: GABAPENTIN 300 MG CAPSULE PO SCH ×2 (09:41→20:31)
[2019-08-28] MEDS: MECLIZINE 25 MG TABLET PO SCH ×3 (09:41→20:30)
[2019-08-28] MEDS: MONTELUKAST 10 MG TABLET PO SCH (09:41)
[2019-08-28] MEDS: LACTULOSE 20 GM/30 ML UDCUP PO SCH ×3 (09:42→20:31)
[2019-08-28] MEDS: PANTOPRAZOLE 40 MG TABLET PO SCH (09:42)
[2019-08-28] MEDS: DEXTROSE 5% 1,000 ML IV SCH (11:53)
[2019-08-28] MEDS ORDERED: SODIUM CHLORIDE 0.9% 1,000 ML IV PRN ×2 (15:42→19:01)
[2019-08-28] MEDS: RIFAXIMIN 550 MG TABLET PO SCH (20:30)
[2019-08-28] MEDS: FOLIC ACID 1 MG TABLET PO SCH (20:30)
[2019-08-28] MEDS: MIRTAZAPINE 15 MG TABLET PO SCH (20:31)
[2019-08-29 06:13] LABS: Basophils % 0.7 % (0.0-0.8); Eosinophils # 0.7 10*3/uL (0.0-0.87); Eosinophils % 15.9 % (0.00-10.9); Hematocrit 29.4 VOL% (35.7-47.0); Hemoglobin 9.4 GM/DL (12.0-16.0); Immature Granulocytes % 0.7 %; Immature Granulocytes Absolute 0.03 #; Lymphocytes # 0.6 10*3/uL (1.4-4.0); Lymphocytes % 13.8 % (21.3-54.2); Mean Corpuscular Volume 100.7 FL (87-102); Mean Platelet Volume 10.5 FL (9.6-12.0); Monocytes % 14.3 % (1.7-12.7); Neutrophils % 54.6 % (38.7-73.9); Platelet Count 84 T/CUMM (130-400); Red Blood Count 2.92 MC/CUMM (3.8-5.5); Red Cell Distribution Width 23.6 % (9.3-17.3); White Blood Count 4.4 T/CUMM (4-12)
[2019-08-29 06:38] LABS: % Iron Saturation 32.4 % (18-50); Ferritin 37.8 ng/ml (8-252)
[2019-08-29 06:46] LABS: Folate 23.6 NG/ML (5.4-24.0)
[2019-08-29] MEDS: azaTHIOprine 50 MG TABLET PO SCH (08:05)
[2019-08-29] MEDS: LACTULOSE 20 GM/30 ML UDCUP PO SCH ×3 (08:05→21:20)
[2019-08-29] MEDS: PANTOPRAZOLE 40 MG TABLET PO SCH (08:05)
[2019-08-29] MEDS: MECLIZINE 25 MG TABLET PO SCH ×3 (08:05→21:19)
[2019-08-29] MEDS: GABAPENTIN 300 MG CAPSULE PO SCH ×2 (08:05→21:19)
[2019-08-29] MEDS: RIFAXIMIN 550 MG TABLET PO SCH ×2 (08:05→21:19)
[2019-08-29] MEDS: CARBIDOPA/LEVODOPA 25-100 MG TABLET PO SCH ×3 (08:05→21:19)
[2019-08-29] MEDS: MONTELUKAST 10 MG TABLET PO SCH (08:05)
[2019-08-29 08:06] LABS: Band Neutrophils 3 % (0-10); Eosinophils 15 % (0-10); Lymphocytes 13 % (20-55); Platelet Estimate Decreased; Segmented Neutrophils 59 % (50-85); Total Cells Counted 100
[2019-08-29 08:07] LABS: Anisocytosis 1+; Macrocytosis Slight
[2019-08-29] MEDS: DEXTROSE 5% 1,000 ML IV SCH (08:11)
[2019-08-29] MEDS: FOLIC ACID 1 MG TABLET PO SCH (21:19)
[2019-08-29] MEDS: MIRTAZAPINE 15 MG TABLET PO SCH (21:19)
[2019-08-30] MEDS: DEXTROSE 5% 1,000 ML IV SCH (05:34)
[2019-08-30 06:03] LABS: Basophils % 0.5 % (0.0-0.8); Eosinophils # 0.6 10*3/uL (0.0-0.87); Eosinophils % 13.7 % (0.00-10.9); Hematocrit 29.5 VOL% (35.7-47.0); Hemoglobin 9.5 GM/DL (12.0-16.0); Immature Granulocytes % 0.5 %; Immature Granulocytes Absolute 0.02 #; Lymphocytes # 0.6 10*3/uL (1.4-4.0); Lymphocytes % 13.7 % (21.3-54.2); Mean Corpuscular HGB Conc 32.2 GM/DL (32-36); Mean Corpuscular Volume 99.7 FL (87-102); Mean Platelet Volume 10.3 FL (9.6-12.0); Monocytes % 14.2 % (1.7-12.7); Neutrophils % 57.4 % (38.7-73.9); Platelet Count 78 T/CUMM (130-400); Red Blood Count 2.96 MC/CUMM (3.8-5.5); Red Cell Distribution Width 22.2 % (9.3-17.3); White Blood Count 4.1 T/CUMM (4-12)
[2019-08-30 06:28] LABS: Calcium 7.7 MG/DL (8.5-10.1); Osmolality,Calculated 279.3 MOS/KG (273-304)
[2019-08-30 06:43] LABS: Band Neutrophils 4 % (0-10); Eosinophils 14 % (0-10); Lymphocytes 10 % (20-55); Segmented Neutrophils 63 % (50-85); Total Cells Counted 100
[2019-08-30 06:49] LABS: Platelet Estimate Decreased
[2019-08-30 06:50] LABS: Anisocytosis 2+; Macrocytosis 1+
[2019-08-30] MEDS: GABAPENTIN 300 MG CAPSULE PO SCH (08:53)
[2019-08-30] MEDS: CARBIDOPA/LEVODOPA 25-100 MG TABLET PO SCH (08:53)
[2019-08-30] MEDS: PANTOPRAZOLE 40 MG TABLET PO SCH (08:53)
[2019-08-30] MEDS: RIFAXIMIN 550 MG TABLET PO SCH (08:53)
[2019-08-30] MEDS: MONTELUKAST 10 MG TABLET PO SCH (08:53)
[2019-08-30] MEDS: MECLIZINE 25 MG TABLET PO SCH (08:54)
[2019-08-30] MEDS: LACTULOSE 20 GM/30 ML UDCUP PO SCH (08:55)
[2019-08-30] MEDS: azaTHIOprine 50 MG TABLET PO SCH (08:59)
[2019-08-30 09:38] VITALS: BP 105/56
== END 2019-08-30 10:55 | disposition home health service (06) | DRG 71 ==
LOC: EDBD → EDUNIT# → N.ED 05:32 → N.EDINP 05:32 → N.5E 10:53
PROVIDERS: ADMIT Internal Medicine; ATTEND Internal Medicine

== ENCOUNTER 2019-09-10 06:15 | Inpatient (IN) ==
[2019-09-10] MEDS ORDERED: SODIUM CHLORIDE 0.9% 1,000 ML IV STA (06:22)
[2019-09-10 06:44] LABS: INR 1.1; PT Patient Result 12.1 SECS (9.6-12.2); Partial Thromboplastin Time 27.3 SECS (20.8-36.0)
[2019-09-10 06:48] LABS: ABG Base Excess 13.5 MMOL/L (-2.5-2.5); ABG HCO3 37.4 MMOL/L (20-26); ABG Oxygen Saturation 99.1 % (95-100); ABG PCO2 44.2 MM HG (35-48); ABG PH 7.545 (7.35-7.45); ABG PO2 391.1 MM HG (80-95); ABG TCO2 38.7 MMOL/L (23-27); Allen Test Positive
[2019-09-10 06:53] LABS: Barbiturates Screen,Urine Negative (Negative); Benzodiazepines Screen,Urine Negative (Negative); Cannabinoid Screen,Urine Negative (Negative); Opiate Screen,Urine Negative (Negative); Phencyclidine Screen,Urine Negative (Negative)
[2019-09-10 07:00] LABS: Apearance,Urine CLOUDY (Clear); Bilirubin,Urine Negative (Negative); Blood, Urine Negative (Negative); Glucose,Urine (UA) Negative (Negative); Ketones,Urine Negative (Negative); Nitrite,Urine Negative (Negative); Protein,Urine Negative; Urine Color Yellow (Yellow); Urine Specific Gravity 1.006 (1.001-1.035); Urine Urobilinogen < 2.0 EU/DL (0.2-1.0); WBC,Urine 98 /HPF (0-6)
[2019-09-10 07:05] LABS: Alanine Aminotransferase 15 U/L (13-56); Albumin 2.9 G/DL (3.4-5.0); Alkaline Phosphatase 122 U/L (45-117); Aspartate Amino Transferase 33 U/L (0-37); Blood Urea Nitrogen 41 MG/DL (7-18); Calcium 8.7 MG/DL (8.5-10.1); Estimated Glom Filtration Rate 15 ML/MIN; Glucose 228 MG/DL (74-106); Osmolality,Calculated 297.3 MOS/KG (273-304); Total Protein 6.5 G/DL (6.4-8.3)
[2019-09-10] MEDS ORDERED: cefTRIAXone 1,000 MG in SODIUM CHLORIDE 0.9% 100 ML IV STA (07:22)
[2019-09-10] MEDS ORDERED: ONDANSETRON 4 MG/2 ML VIAL IV PRN (08:52)
[2019-09-10] MEDS ORDERED: cefTRIAXone 1,000 MG in SYRINGE 1 EACH IV SCH (11:00)
[2019-09-10] MEDS ORDERED: LACTULOSE 320 GM/480 ML BOTTLE RECTAL SCH (11:00)
[2019-09-10 11:07] LABS: Basophils % 0.5 % (0.0-0.8); Eosinophils # 0.2 10*3/uL (0.0-0.87); Hematocrit 28.7 VOL% (35.7-47.0); Hemoglobin 9.3 GM/DL (12.0-16.0); Immature Granulocytes % 1.9 %; Immature Granulocytes Absolute 0.11 #; Lymphocytes # 0.5 10*3/uL (1.4-4.0); Lymphocytes % 9.5 % (21.3-54.2); Mean Corpuscular HGB Conc 32.4 GM/DL (32-36); Mean Corpuscular Volume 99.3 FL (87-102); Mean Platelet Volume 9.5 FL (9.6-12.0); Neutrophils % 73.1 % (38.7-73.9); Platelet Count 147 T/CUMM (130-400); Red Blood Count 2.89 MC/CUMM (3.8-5.5); Red Cell Distribution Width 19.4 % (9.3-17.3); White Blood Count 5.7 T/CUMM (4-12)
[2019-09-10 12:04] LABS: Folate > 24.0 NG/ML (5.4-24.0); Vitamin B12 505 PG/ML (211-911)
[2019-09-10] MEDS: PANTOPRAZOLE 40 MG VIAL IV SCH ×2 (12:49→21:58)
[2019-09-10] MEDS: LACTULOSE 20 GM/30 ML UDCUP PO SCH ×3 (15:58→22:07)
[2019-09-11] MEDS: LACTULOSE 20 GM/30 ML UDCUP PO SCH ×6 (04:31→22:35)
[2019-09-11 05:50] LABS: Basophils # 0.1 10*3/uL (0.0-0.2); Basophils % 0.4 % (0.0-0.8); Eosinophils # 0.3 10*3/uL (0.0-0.87); Eosinophils % 2.3 % (0.00-10.9); Hematocrit 30.4 VOL% (35.7-47.0); Hemoglobin 9.7 GM/DL (12.0-16.0); Immature Granulocytes Absolute 0.12 #; Lymphocytes # 0.7 10*3/uL (1.4-4.0); Lymphocytes % 5.3 % (21.3-54.2); Mean Corpuscular HGB Conc 31.9 GM/DL (32-36); Mean Corpuscular Volume 101.3 FL (87-102); Mean Platelet Volume 10.3 FL (9.6-12.0); Platelet Count 170 T/CUMM (130-400); Red Cell Distribution Width 20.5 % (9.3-17.3); White Blood Count 12.3 T/CUMM (4-12)
[2019-09-11 06:10] LABS: Albumin 2.8 G/DL (3.4-5.0); Bilirubin,Total 1.6 MG/DL (0.2-1.0); Osmolality,Calculated 299.6 MOS/KG (273-304); Total Protein 6.8 G/DL (6.4-8.3)
[2019-09-11] MEDS ORDERED: ALBUTEROL/IPRATROPIUM 3 ML NEB RESP TX PRN (07:58)
[2019-09-11 08:30] LABS: ABG Base Excess 10.3 MMOL/L (-2.5-2.5); ABG Oxygen Saturation 97.5 % (95-100); ABG PCO2 45.2 MM HG (35-48); ABG PH 7.495 (7.35-7.45); ABG PO2 82.3 MM HG (80-95); ABG TCO2 31.5 MMOL/L (23-27); Allen Test Positive
[2019-09-11] MEDS: cefTRIAXone 1,000 MG in SYRINGE 1 EACH IV SCH (09:45)
[2019-09-11] MEDS: PANTOPRAZOLE 40 MG VIAL IV SCH ×2 (09:45→22:31)
[2019-09-11] MEDS ORDERED: LORazepam 2 MG/1 ML VIAL IV ONE (14:00)
[2019-09-11] MEDS: POTASSIUM CHLORIDE RIDER 10 MEQ in PREMIX 1 EACH IV PRN ×2 (17:21→19:24)
[2019-09-12] MEDS: POTASSIUM CHLORIDE RIDER 10 MEQ in PREMIX 1 EACH IV PRN ×3 (04:10→08:45)
[2019-09-12] MEDS: LACTULOSE 20 GM/30 ML UDCUP PO SCH ×6 (05:03→21:11)
[2019-09-12 06:06] LABS: Basophils # 0.1 10*3/uL (0.0-0.2); Basophils % 0.7 % (0.0-0.8); Eosinophils # 0.6 10*3/uL (0.0-0.87); Hematocrit 33.5 VOL% (35.7-47.0); Hemoglobin 10.4 GM/DL (12.0-16.0); Immature Granulocytes % 0.6 %; Immature Granulocytes Absolute 0.05 #; Lymphocytes # 0.7 10*3/uL (1.4-4.0); Lymphocytes % 8.1 % (21.3-54.2); Mean Corpuscular Volume 103.4 FL (87-102); Monocytes % 9.6 % (1.7-12.7); Platelet Count 170 T/CUMM (130-400); Red Blood Count 3.24 MC/CUMM (3.8-5.5)
[2019-09-12 06:35] LABS: Albumin 2.8 G/DL (3.4-5.0); Bilirubin,Total 1.3 MG/DL (0.2-1.0); Calcium 9.4 MG/DL (8.5-10.1); Osmolality,Calculated 296.6 MOS/KG (273-304); Total Protein 7.1 G/DL (6.4-8.3)
[2019-09-12] MEDS: cefTRIAXone 1,000 MG in SYRINGE 1 EACH IV SCH (08:16)
[2019-09-12] MEDS: PANTOPRAZOLE 40 MG VIAL IV SCH ×2 (08:25→22:00)
[2019-09-12] MEDS: IRON (CARBONYL)/VIT C/B12/FA TABLET PO SCH (22:00)
[2019-09-12] MEDS: FOLIC ACID 1 MG TABLET PO SCH (22:00)
[2019-09-13] MEDS: LACTULOSE 20 GM/30 ML UDCUP PO SCH ×6 (03:09→22:14)
[2019-09-13 04:31] LABS: Basophils # 0.1 10*3/uL (0.0-0.2); Basophils % 0.9 % (0.0-0.8); Eosinophils # 0.8 10*3/uL (0.0-0.87); Eosinophils % 12.9 % (0.00-10.9); Hematocrit 32.5 VOL% (35.7-47.0); Hemoglobin 10.1 GM/DL (12.0-16.0); Immature Granulocytes % 0.8 %; Immature Granulocytes Absolute 0.05 #; Lymphocytes # 0.6 10*3/uL (1.4-4.0); Lymphocytes % 9.5 % (21.3-54.2); Mean Corpuscular HGB Conc 31.1 GM/DL (32-36); Mean Corpuscular Volume 104.5 FL (87-102); Mean Platelet Volume 9.8 FL (9.6-12.0); Monocytes % 10.3 % (1.7-12.7); Neutrophils % 65.6 % (38.7-73.9); Platelet Count 154 T/CUMM (130-400); Red Blood Count 3.11 MC/CUMM (3.8-5.5); Red Cell Distribution Width 19.5 % (9.3-17.3); White Blood Count 6.3 T/CUMM (4-12)
[2019-09-13 04:54] LABS: Albumin 2.9 G/DL (3.4-5.0); Bilirubin,Total 1.4 MG/DL (0.2-1.0); Calcium 9.8 MG/DL (8.5-10.1); Osmolality,Calculated 305.7 MOS/KG (273-304); Total Protein 7.2 G/DL (6.4-8.3)
[2019-09-13 06:06] LABS: Anisocytosis 1+; Band Neutrophils 2 % (0-10); Eosinophils 14 % (0-10); Lymphocytes 8 % (20-55); Macrocytosis 1+; Platelet Estimate Adequate; Segmented Neutrophils 69 % (50-85); Total Cells Counted 100
[2019-09-13] MEDS: PANTOPRAZOLE 40 MG VIAL IV SCH ×2 (08:37→22:14)
[2019-09-13] MEDS: cefTRIAXone 1,000 MG in SYRINGE 1 EACH IV SCH (08:38)
[2019-09-13] MEDS: MONTELUKAST 10 MG TABLET PO SCH (09:15)
[2019-09-13] MEDS: IRON (CARBONYL)/VIT C/B12/FA TABLET PO SCH ×2 (09:15→22:14)
[2019-09-13] MEDS: ASPIRIN EC 81 MG TABLET PO SCH (09:16)
[2019-09-13] MEDS: POTASSIUM CHLORIDE RIDER 10 MEQ in PREMIX 1 EACH IV PRN (09:56)
[2019-09-13] MEDS: FOLIC ACID 1 MG TABLET PO SCH (22:13)
[2019-09-14 05:51] LABS: Basophils % 0.7 % (0.0-0.8); Eosinophils # 0.9 10*3/uL (0.0-0.87); Eosinophils % 15.5 % (0.00-10.9); Hematocrit 33.1 VOL% (35.7-47.0); Hemoglobin 10.5 GM/DL (12.0-16.0); Immature Granulocytes % 1.5 %; Immature Granulocytes Absolute 0.08 #; Lymphocytes # 0.7 10*3/uL (1.4-4.0); Lymphocytes % 12.8 % (21.3-54.2); Mean Corpuscular HGB Conc 31.7 GM/DL (32-36); Mean Corpuscular Volume 104.1 FL (87-102); Mean Platelet Volume 10.1 FL (9.6-12.0); Monocytes % 10.2 % (1.7-12.7); Neutrophils % 59.3 % (38.7-73.9); Platelet Count 151 T/CUMM (130-400); Red Blood Count 3.18 MC/CUMM (3.8-5.5); Red Cell Distribution Width 19.2 % (9.3-17.3); White Blood Count 5.5 T/CUMM (4-12)
[2019-09-14 06:20] LABS: Calcium 9.4 MG/DL (8.5-10.1); Osmolality,Calculated 292.7 MOS/KG (273-304)
[2019-09-14 06:34] LABS: Eosinophils 23 % (0-10); Hypochromasia 1+; Lymphocytes 13 % (20-55); Macrocytosis Slight; Platelet Estimate Adequate; Segmented Neutrophils 52 % (50-85); Total Cells Counted 100
[2019-09-14] MEDS: ASPIRIN EC 81 MG TABLET PO SCH (10:40)
[2019-09-14] MEDS: LACTULOSE 20 GM/30 ML UDCUP PO SCH ×4 (10:40→20:03)
[2019-09-14] MEDS: CIPROFLOXACIN 500 MG TABLET PO SCH ×2 (10:40→20:03)
[2019-09-14] MEDS: PANTOPRAZOLE 40 MG VIAL IV SCH ×2 (10:40→20:03)
[2019-09-14] MEDS: MONTELUKAST 10 MG TABLET PO SCH (10:41)
[2019-09-14] MEDS: IRON (CARBONYL)/VIT C/B12/FA TABLET PO SCH ×2 (10:46→20:06)
[2019-09-14] MEDS: FOLIC ACID 1 MG TABLET PO SCH (20:03)
[2019-09-15 07:49] LABS: Basophils % 0.9 % (0.0-0.8); Eosinophils # 0.5 10*3/uL (0.0-0.87); Eosinophils % 11.4 % (0.00-10.9); Hematocrit 28.9 VOL% (35.7-47.0); Hemoglobin 9.4 GM/DL (12.0-16.0); Immature Granulocytes % 0.9 %; Immature Granulocytes Absolute 0.04 #; Lymphocytes # 0.6 10*3/uL (1.4-4.0); Lymphocytes % 12.7 % (21.3-54.2); Mean Corpuscular HGB Conc 32.5 GM/DL (32-36); Mean Platelet Volume 10.4 FL (9.6-12.0); Monocytes % 12.7 % (1.7-12.7); Neutrophils % 61.4 % (38.7-73.9); Red Blood Count 2.86 MC/CUMM (3.8-5.5); Red Cell Distribution Width 18.5 % (9.3-17.3); White Blood Count 4.6 T/CUMM (4-12)
[2019-09-15 07:52] LABS: Platelet Count 106 T/CUMM (130-400)
[2019-09-15 08:06] LABS: Albumin 2.6 G/DL (3.4-5.0); Bilirubin,Total 1.5 MG/DL (0.2-1.0); Calcium 8.8 MG/DL (8.5-10.1); Total Protein 6.4 G/DL (6.4-8.3)
[2019-09-15 08:08] LABS: Eosinophils 12 % (0-10); Lymphocytes 11 % (20-55); Platelet Estimate Decreased; Segmented Neutrophils 64 % (50-85); Total Cells Counted 100
[2019-09-15 08:09] LABS: Hypochromasia 1+; Macrocytosis Slight
[2019-09-15] MEDS: CIPROFLOXACIN 500 MG TABLET PO SCH (09:29)
[2019-09-15] MEDS: ASPIRIN EC 81 MG TABLET PO SCH (09:29)
[2019-09-15] MEDS: LACTULOSE 20 GM/30 ML UDCUP PO SCH ×2 (09:29→14:19)
[2019-09-15] MEDS: PANTOPRAZOLE 40 MG VIAL IV SCH (09:30)
[2019-09-15] MEDS: MONTELUKAST 10 MG TABLET PO SCH (09:30)
[2019-09-15] MEDS: IRON (CARBONYL)/VIT C/B12/FA TABLET PO SCH (09:37)
[2019-09-15] MEDS ORDERED: POTASSIUM CHLORIDE RIDER 10 MEQ in PREMIX 1 EACH IV PRN (10:59)
[2019-09-15] MEDS ORDERED: MAGNESIUM SULF RIDER 2 GM in PREMIX 1 EACH IV PRN (10:59)
[2019-09-15] MEDS ORDERED: MAGNESIUM SULF RIDER 4 GM in PREMIX 1 EACH IV PRN (10:59)
[2019-09-15 11:46] VITALS: BP 115/54
[2019-09-15] MEDS ORDERED: POTASSIUM CHLORIDE 20 MEQ TABLET PO PRN (11:57)
== END 2019-09-15 15:15 | disposition swing bed (61) | DRG 441 ==
LOC: EDUNIT# → N.ED 06:15 → N.EDINP 08:52 → SUATTDRO 08:52 → N.TELES 10:27
PROVIDERS: ADMIT Internal Medicine; ATTEND Internal Medicine

== ENCOUNTER 2019-09-29 09:01 | Inpatient (IN) ==
[2019-09-29] MEDS ORDERED: ONDANSETRON 4 MG/2 ML VIAL IV PRN (11:39)
[2019-09-29] MEDS ORDERED: INFLUENZA VIRUS VACCINE 0.5 ML SYRINGE IM ONE (12:23)
[2019-09-29] MEDS: LACTULOSE 20 GM/30 ML UDCUP PO SCH ×3 (16:30→23:25)
[2019-09-29] MEDS: SODIUM CHLORIDE 0.9% 1,000 ML IV SCH (17:00)
[2019-09-30] MEDS: SODIUM CHLORIDE 0.9% 1,000 ML IV SCH ×3 (00:43→18:34)
[2019-09-30] MEDS: LACTULOSE 20 GM/30 ML UDCUP PO SCH ×6 (03:17→20:59)
[2019-09-30 04:46] LABS: Basophils % 0.6 % (0.0-0.8); Eosinophils # 0.4 10*3/uL (0.0-0.87); Eosinophils % 11.1 % (0.00-10.9); Hematocrit 26.2 VOL% (35.7-47.0); Hemoglobin 8.7 GM/DL (12.0-16.0); Immature Granulocytes % 0.9 %; Immature Granulocytes Absolute 0.03 #; Lymphocytes # 0.5 10*3/uL (1.4-4.0); Lymphocytes % 15.7 % (21.3-54.2); Mean Corpuscular HGB Conc 33.2 GM/DL (32-36); Mean Corpuscular Volume 103.1 FL (87-102); Mean Platelet Volume 11.2 FL (9.6-12.0); Neutrophils % 59.7 % (38.7-73.9); Platelet Count 87 T/CUMM (130-400); Red Blood Count 2.54 MC/CUMM (3.8-5.5); Red Cell Distribution Width 18.6 % (9.3-17.3); White Blood Count 3.3 T/CUMM (4-12)
[2019-09-30 05:42] LABS: Eosinophils 10 % (0-10); Hypochromasia 2+; Lymphocytes 17 % (20-55); Platelet Estimate Decreased; Segmented Neutrophils 63 % (50-85); Total Cells Counted 100
[2019-09-30 05:43] LABS: Anisocytosis 2+; Macrocytosis 2+
[2019-09-30] MEDS: PANTOPRAZOLE 40 MG VIAL IV SCH (08:30)
[2019-09-30] MEDS ORDERED: GLUCAGON 1 MG VIAL IM PRN (11:56)
[2019-09-30] MEDS ORDERED: DEXTROSE 50% 25 GM/50 ML VIAL IV PRN (11:56)
[2019-09-30] MEDS ORDERED: TUBERCULIN SKIN TEST 0.1 ML SYRINGE INTRADERM ONE (13:24)
[2019-09-30] MEDS: MIRTAZAPINE 15 MG TABLET PO SCH (20:59)
[2019-09-30] MEDS: CARBIDOPA/LEVODOPA 25-100 MG TABLET PO SCH (20:59)
[2019-10-01] MEDS: LACTULOSE 20 GM/30 ML UDCUP PO SCH ×6 (00:37→21:00)
[2019-10-01] MEDS: SODIUM CHLORIDE 0.9% 1,000 ML IV SCH (04:25)
[2019-10-01 06:36] LABS: Calcium 8.4 MG/DL (8.5-10.1); Osmolality,Calculated 305.3 MOS/KG (273-304)
[2019-10-01] MEDS: POTASSIUM CHLORIDE 20 MEQ TABLET PO SCH ×3 (09:18→16:59)
[2019-10-01] MEDS: PANTOPRAZOLE 40 MG VIAL IV SCH (09:18)
[2019-10-01] MEDS: CARBIDOPA/LEVODOPA 25-100 MG TABLET PO SCH ×3 (09:19→21:03)
[2019-10-01] MEDS: SODIUM CHLORIDE 0.45% 1,000 ML IV SCH ×2 (09:39→23:25)
[2019-10-01] MEDS: MIRTAZAPINE 15 MG TABLET PO SCH (21:03)
[2019-10-02] MEDS: LACTULOSE 20 GM/30 ML UDCUP PO SCH ×6 (00:08→21:15)
[2019-10-02 06:21] LABS: Calcium 8.2 MG/DL (8.5-10.1); Osmolality,Calculated 298.1 MOS/KG (273-304)
[2019-10-02] MEDS: CARBIDOPA/LEVODOPA 25-100 MG TABLET PO SCH ×3 (09:18→21:15)
[2019-10-02] MEDS: PANTOPRAZOLE 40 MG VIAL IV SCH (09:23)
[2019-10-02] MEDS: SODIUM CHLORIDE 0.45% 1,000 ML IV SCH (13:37)
[2019-10-02] MEDS: MIRTAZAPINE 15 MG TABLET PO SCH (21:15)
[2019-10-03] MEDS: LACTULOSE 20 GM/30 ML UDCUP PO SCH ×5 (01:19→20:47)
[2019-10-03 06:00] LABS: Calcium 8.4 MG/DL (8.5-10.1); Osmolality,Calculated 278.3 MOS/KG (273-304)
[2019-10-03] MEDS: SODIUM CHLORIDE 0.45% 1,000 ML IV SCH (06:10)
[2019-10-03] MEDS: PANTOPRAZOLE 40 MG VIAL IV SCH (09:29)
[2019-10-03] MEDS: CARBIDOPA/LEVODOPA 25-100 MG TABLET PO SCH ×3 (09:29→20:47)
[2019-10-03] MEDS: FUROSEMIDE 20 MG TABLET PO SCH (09:37)
[2019-10-03] MEDS: SPIRONOLACTONE 50 MG TABLET PO SCH (09:37)
[2019-10-03] MEDS: MIRTAZAPINE 15 MG TABLET PO SCH (20:47)
[2019-10-04] MEDS: CARBIDOPA/LEVODOPA 25-100 MG TABLET PO SCH ×3 (08:40→20:59)
[2019-10-04] MEDS: SPIRONOLACTONE 50 MG TABLET PO SCH (08:40)
[2019-10-04] MEDS: LACTULOSE 20 GM/30 ML UDCUP PO SCH ×3 (08:40→20:59)
[2019-10-04] MEDS: FUROSEMIDE 20 MG TABLET PO SCH (08:40)
[2019-10-04] MEDS: PANTOPRAZOLE 40 MG VIAL IV SCH (08:40)
[2019-10-04] MEDS: MIRTAZAPINE 15 MG TABLET PO SCH (20:59)
[2019-10-05 08:09] LABS: Basophils % 0.4 % (0.0-0.8); Eosinophils # 0.4 10*3/uL (0.0-0.87); Eosinophils % 15.1 % (0.00-10.9); Hematocrit 24.7 VOL% (35.7-47.0); Hemoglobin 8.3 GM/DL (12.0-16.0); Immature Granulocytes % 0.8 %; Immature Granulocytes Absolute 0.02 #; Lymphocytes # 0.5 10*3/uL (1.4-4.0); Lymphocytes % 19.3 % (21.3-54.2); Mean Corpuscular HGB Conc 33.6 GM/DL (32-36); Mean Corpuscular Volume 102.9 FL (87-102); Mean Platelet Volume 10.1 FL (9.6-12.0); Monocytes % 14.7 % (1.7-12.7); Neutrophils % 49.7 % (38.7-73.9); Platelet Count 65 T/CUMM (130-400); Red Cell Distribution Width 17.5 % (9.3-17.3); White Blood Count 2.6 T/CUMM (4-12)
[2019-10-05] MEDS: LACTULOSE 20 GM/30 ML UDCUP PO SCH (08:31)
[2019-10-05] MEDS: FUROSEMIDE 20 MG TABLET PO SCH (08:31)
[2019-10-05] MEDS: CARBIDOPA/LEVODOPA 25-100 MG TABLET PO SCH (08:31)
[2019-10-05] MEDS: SPIRONOLACTONE 50 MG TABLET PO SCH (08:31)
[2019-10-05] MEDS: PANTOPRAZOLE 40 MG VIAL IV SCH (08:31)
[2019-10-05 08:35] LABS: Calcium 8.1 MG/DL (8.5-10.1); Osmolality,Calculated 281.1 MOS/KG (273-304)
[2019-10-05 08:39] LABS: Eosinophils 18 % (0-10); Lymphocytes 17 % (20-55); Segmented Neutrophils 59 % (50-85); Total Cells Counted 100
[2019-10-05 08:40] LABS: Hypochromasia 1+; Platelet Estimate Decreased
[2019-10-05] MEDS ORDERED: MAGNESIUM SULF RIDER 4 GM in PREMIX 1 EACH IV ONE (09:30)
[2019-10-05 12:01] VITALS: BP 109/51
[2019-10-05] MEDS ORDERED: levETIRAcetam 500 MG TABLET PO SCH (15:00)
[2019-10-06] MEDS ORDERED: PANTOPRAZOLE 40 MG TABLET PO SCH (09:00)
== END 2019-10-05 15:01 | DRG 443 ==
LOC: N.ICU 10:47 → SUATTDRO 10:47 → N.2E 09-30 18:24
PROVIDERS: ADMIT Internal Medicine; ATTEND Internal Medicine